=== PATIENT | male | born 1965 | race Two or more races ===

== ENCOUNTER 2016-09-16 12:37 | Emergency (ER) | payer MEDICAID ==
[~2016-09-16] VITALS: Ht 175.3 cm; Wt 84.4 kg
[2016-09-16] MEDS ORDERED: SODIUM CHLORIDE 0.9% 1,000 ML IV ONE (13:06)
[2016-09-16] MEDS ORDERED: MORPHINE SULFATE 4 MG/ML SYRG IV ONE (13:15)
[2016-09-16] MEDS ORDERED: TETANUS-DIPTH-ACEL PERTUSSIS 0.5ML SYRG IM ONE (13:15)
[2016-09-16] MEDS ORDERED: ONDANSETRON HCL 4 MG/2 ML VIAL IV ONE ×2 (13:15→15:30)
[2016-09-16] MEDS ORDERED: HYDROmorphone HCL 2 MG/ML VL IV ONE ×2 (13:30→15:30)
[2016-09-16 13:35] LABS: Basophils # (auto) 0 uL; Basophils % (auto) 0.3 % (0.0-2.0); Eosinophils # (auto) 0 uL; Eosinophils % (auto) 0.2 % (0.0-7.0); Hemoglobin 14.6 g/dL (13.5-17.5); Lymphocytes # (auto) 1.8 uL; Lymphocytes % (auto) 17.4 % (10.0-50.0); Mean Corpuscular Hemoglobin 27.9 pg (28.0-32.0); Mean Corpuscular Hgb Conc. 33.2 g/dL (32.0-36.0); Mean Platelet Volume 8.4 fL (7.4-10.4); Monocytes # (auto) 0.6 uL; Monocytes % (auto) 6.4 % (0.0-12.0); Neutrophils # (auto) 7.7 uL; Neutrophils % (auto) 75.7 % (37.0-80.0); Platelet Count (auto) 222 10^3/uL (140-450); Red Cell Distribution Width 13.7 % (11.6-16.0); White Blood Cell 10.1 10^3/uL (4.4-10.8)
[2016-09-16 13:58] LABS: Albumin 4.2 g/dL (3.4-5.0); Alkaline Phosphatase 62 U/L (45-117); Anion Gap 12 (5-15); Aspartate Aminotransferase 21 U/L (15-37); Bilirubin, Total 0.4 mg/dL (0.2-1.0); Blood Urea Nitrogen 20 mg/dL (7-18); Calcium 8.7 mg/dL (8.5-10.1); Carbon Dioxide 23 mmol/L (21-32); Chloride 102 mmol/L (98-107); GFR African American 96 mL/min; GFR Non-African American 79 mL/min; Glucose 242 mg/dL (74-106); INR 1.02 (0.9-1.15); Partial Thromboplastin Time 21.9 sec (22.64-33.71); Potassium 3.8 mmol/L (3.5-5.1); Prothrombin Time 10.5 sec (9.37-12.3); Sodium 137 mmol/L (136-145); Total Protein 8.1 g/dL (6.4-8.2)
[2016-09-16 15:40] VITALS: BP 136/77
[2016-09-16] MEDS ORDERED: BACITRACIN-POLYMYXIN B TOPICAL OINT UD TOP ONE (15:45)
== END 2016-09-16 16:30 | disposition home or self-care (01) ==
LOC: ER 12:39
DX: S82.455A Nondisplaced comminuted fracture of shaft of left fibula, initial encounter for closed fracture (principal); W22.8XXA Striking against or struck by other objects, initial encounter; Y93.89 Activity, other specified; Y92.89 Other specified places as the place of occurrence of the external cause; Y99.8 Other external cause status; E11.9 Type 2 diabetes mellitus without complications; I10 Essential (primary) hypertension
CPT/HCPCS: 36415; 73590; 80053; 84484; 85025; 85610; 85730; 90471; 90715; 96361; 96374; 96375; 96376; 99285; J1170; J2405; J7030